=== PATIENT | female | born 1965 | race Caucasian/White ===

== ENCOUNTER 2023-07-18 11:01 | Emergency (ER) | payer MEDICARE, MEDICAID ==
[2023-07-18] MEDS ORDERED: Sodium Chloride 0.9% 10 ML Syringe FLUSH PRN (11:10)
[2023-07-18 11:23] LABS: BASOPHILS ABSOLUTE AUTO 0.01 10^3/uL (0.00-0.10); BASOPHILS PERCENT AUTO 0.1 % (0.0-1.0); EOSINOPHILS ABSOLUTE AUTO 0.12 10^3/uL (0.10-0.30); EOSINOPHILS PERCENT AUTO 0.9 % (1.0-3.0); HEMATOCRIT 45.2 % (37.0-47.0); HEMOGLOBIN 15.1 g/dL (12.0-16.0); IMMATURE GRAN ABSOLUTE AUTO 0.05 10^3/uL (0.00-0.50); IMMATURE GRAN PERCENT AUTO 0.4 % (0.0-5.0); LYMPHOCYTES ABSOLUTE AUTO 3.59 10^3/uL (1.00-4.00); LYMPHOCYTES PERCENT AUTO 27.8 % (20.0-40.0); MEAN CORPUSCULAR HEMOGLOBIN 31.9 pg (27.0-31.0); MEAN CORPUSCULAR HGB CONC 33.4 g/dL (32.0-36.0); MEAN CORPUSCULAR VOLUME 95.4 fL (82.0-92.0); MEAN PLATELET VOLUME 9.5 fL (7.4-10.4); MONOCYTES ABSOLUTE AUTO 0.73 10^3/uL (0.10-0.80); MONOCYTES PERCENT AUTO 5.6 % (2.0-8.0); NEUTROPHILS ABSOLUTE AUTO 8.43 10^3/uL (2.50-7.00); NEUTROPHILS PERCENT AUTO 65.2 % (50.0-70.0); PLATELET COUNT,PLT 284 10^3/uL (150-400); RED BLOOD CELL COUNT 4.74 10^6/uL (3.80-5.50); RED CELL DISTRIBUTION WIDTH 12.7 % (11.5-14.5); WHITE BLOOD CELL COUNT,WBC 12.93 10^3/uL (5.00-10.00)
[2023-07-18] MEDS: Sodium Chloride 0.9% 1,000 ML IV ONE (11:34)
[2023-07-18 11:45] LABS: ALBUMIN 3.51 g/dL (3.40-5.00); BILIRUBIN TOTAL 1.6 mg/dL (0.2-1.0); CALCIUM 9.5 mg/dL (8.7-10.3); CARBON DIOXIDE,CO2 35.6 mmol/L (21.0-32.0); CREATININE 0.96 mg/dL (0.51-1.17); EST CRCL DRUG DOSING (CG) 52.84 mL/min
[2023-07-18] MEDS: Albuterol/Ipratropium 3.0-0.5 MG/3 ML Neb Soln NEB ONE (11:57)
[2023-07-18 12:06] LABS: INFLUENZA A NAA NEGATIVE (NEGATIVE); INFLUENZA B NAA NEGATIVE (NEGATIVE); RESPIRATORY SYNCYTIAL VIR NAA NEGATIVE (NEGATIVE)
[2023-07-18 12:07] LABS: ANION GAP 8.7 mmol/L (5-15); POTASSIUM,K 3.3 mmol/L (3.5-5.1)
[2023-07-18 12:09] LABS: CORONAVIRUS COVID-19 NAA POSITIVE (NEGATIVE)
== END 2023-07-18 12:40 | disposition home or self-care (01) ==
LOC: KA.ED 11:01
DX: U07.1 COVID-19 (principal); R00.2 Palpitations; R94.5 Abnormal results of liver function studies; Z91.048 Other nonmedicinal substance allergy status; Z88.8 Allergy status to other drugs, medicaments and biological substances; Z87.19 Personal history of other diseases of the digestive system
CPT/HCPCS: 0241U; 36415; 71045; 80053; 84484; 85025; 93010; 96360; 99284; 99285-25; J7030; J7620-GY

== ENCOUNTER 2023-09-22 11:06 | Emergency (ER) | payer MEDICARE, OTHER ==
[2023-09-22 11:42] LABS: BASOPHILS ABSOLUTE AUTO 0.01 10^3/uL (0.00-0.10); BASOPHILS PERCENT AUTO 0.1 % (0.0-1.0); EOSINOPHILS ABSOLUTE AUTO 0.05 10^3/uL (0.10-0.30); EOSINOPHILS PERCENT AUTO 0.5 % (1.0-3.0); HEMATOCRIT 44.4 % (37.0-47.0); HEMOGLOBIN 14.7 g/dL (12.0-16.0); IMMATURE GRAN ABSOLUTE AUTO 0.02 10^3/uL (0.00-0.50); IMMATURE GRAN PERCENT AUTO 0.2 % (0.0-5.0); LYMPHOCYTES ABSOLUTE AUTO 1.88 10^3/uL (1.00-4.00); LYMPHOCYTES PERCENT AUTO 19.1 % (20.0-40.0); MEAN CORPUSCULAR HEMOGLOBIN 31.9 pg (27.0-31.0); MEAN CORPUSCULAR HGB CONC 33.1 g/dL (32.0-36.0); MEAN CORPUSCULAR VOLUME 96.3 fL (82.0-92.0); MEAN PLATELET VOLUME 9.2 fL (7.4-10.4); MONOCYTES ABSOLUTE AUTO 0.94 10^3/uL (0.10-0.80); MONOCYTES PERCENT AUTO 9.6 % (2.0-8.0); NEUTROPHILS ABSOLUTE AUTO 6.93 10^3/uL (2.50-7.00); NEUTROPHILS PERCENT AUTO 70.5 % (50.0-70.0); PLATELET COUNT,PLT 250 10^3/uL (150-400); RED BLOOD CELL COUNT 4.61 10^6/uL (3.80-5.50); RED CELL DISTRIBUTION WIDTH 13.2 % (11.5-14.5); WHITE BLOOD CELL COUNT,WBC 9.83 10^3/uL (5.00-10.00)
[2023-09-22 12:00] LABS: ALBUMIN 3.6 g/dL (3.40-5.00); BILIRUBIN TOTAL 1.1 mg/dL (0.2-1.0); CALCIUM 9.3 mg/dL (8.7-10.3); CARBON DIOXIDE,CO2 36.3 mmol/L (21.0-32.0); CREATININE 0.91 mg/dL (0.51-1.17); EST CRCL DRUG DOSING (CG) 55.74 mL/min; POTASSIUM,K 3.3 mmol/L (3.5-5.1); PROTEIN TOTAL,TP 7.3 g/dL (6.4-8.2)
[2023-09-22 12:22] LABS: INFLUENZA A NAA NEGATIVE (NEGATIVE); INFLUENZA B NAA NEGATIVE (NEGATIVE); RESPIRATORY SYNCYTIAL VIR NAA NEGATIVE (NEGATIVE)
[2023-09-22 12:24] LABS: CORONAVIRUS COVID-19 NAA POSITIVE (NEGATIVE)
[2023-09-22] MEDS: Sodium Chloride 0.9% 1,000 ML IV ONE (12:42)
[2023-09-22] MEDS: Albuterol/Ipratropium 3.0-0.5 MG/3 ML Neb Soln NEB ONE (12:43)
== END 2023-09-22 13:05 | disposition home or self-care (01) ==
LOC: KA.ED 11:06
DX: U07.1 COVID-19 (principal); E78.00 Pure hypercholesterolemia, unspecified; I10 Essential (primary) hypertension; J45.909 Unspecified asthma, uncomplicated; Z91.048 Other nonmedicinal substance allergy status; Z88.8 Allergy status to other drugs, medicaments and biological substances; Z79.899 Other long term (current) drug therapy; Z79.51 Long term (current) use of inhaled steroids
CPT/HCPCS: 0241U; 36415; 71046; 80053; 83605; 84484; 85025; 85379; 94640; 99285; J7620-GY

== ENCOUNTER 2023-09-24 11:53 | Inpatient (IN) | payer MEDICARE, OTHER ==
[2023-09-24] MEDS ORDERED: Sodium Chloride 0.9% 10 ML Syringe FLUSH PRN ×2 (12:01→15:49)
[2023-09-24 12:13] LABS: BASOPHILS ABSOLUTE AUTO 0.02 10^3/uL (0.00-0.10); BASOPHILS PERCENT AUTO 0.2 % (0.0-1.0); EOSINOPHILS ABSOLUTE AUTO 0.12 10^3/uL (0.10-0.30); EOSINOPHILS PERCENT AUTO 1.3 % (1.0-3.0); HEMATOCRIT 44.4 % (37.0-47.0); HEMOGLOBIN 14.9 g/dL (12.0-16.0); IMMATURE GRAN ABSOLUTE AUTO 0.01 10^3/uL (0.00-0.50); IMMATURE GRAN PERCENT AUTO 0.1 % (0.0-5.0); LYMPHOCYTES ABSOLUTE AUTO 3.09 10^3/uL (1.00-4.00); LYMPHOCYTES PERCENT AUTO 34.5 % (20.0-40.0); MEAN CORPUSCULAR HEMOGLOBIN 32.2 pg (27.0-31.0); MEAN CORPUSCULAR HGB CONC 33.6 g/dL (32.0-36.0); MEAN CORPUSCULAR VOLUME 95.9 fL (82.0-92.0); MEAN PLATELET VOLUME 9.9 fL (7.4-10.4); MONOCYTES ABSOLUTE AUTO 0.79 10^3/uL (0.10-0.80); MONOCYTES PERCENT AUTO 8.8 % (2.0-8.0); NEUTROPHILS ABSOLUTE AUTO 4.92 10^3/uL (2.50-7.00); NEUTROPHILS PERCENT AUTO 55.1 % (50.0-70.0); PLATELET COUNT,PLT 210 10^3/uL (150-400); RED BLOOD CELL COUNT 4.63 10^6/uL (3.80-5.50); WHITE BLOOD CELL COUNT,WBC 8.95 10^3/uL (5.00-10.00)
[2023-09-24] MEDS: Sodium Chloride 0.9% 1,000 ML IV ONE (12:40)
[2023-09-24 12:50] LABS: ALANINE AMINOTRANSFERASE,ALT 30 U/L (14-63); ALBUMIN 3.45 g/dL (3.40-5.00); ALKALINE PHOSPHATASE 99 U/L (46-116); ANION GAP 9.6 mmol/L (5-15); ASPARTATE AMNIOTRANSFERASE,AST 25 U/L (15-37); BLOOD UREA NITROGEN,BUN 12 mg/dL (7-18); CALCIUM 9.2 mg/dL (8.7-10.3); CHLORIDE,CL 94 mmol/L (98-107); EST CRCL DRUG DOSING (CG) 56.36 mL/min; GLUCOSE RANDOM 103 mg/dL (70-140); POTASSIUM,K 3.6 mmol/L (3.5-5.1); PROTEIN TOTAL,TP 7.1 g/dL (6.4-8.2); SODIUM,NA 138 mmol/L (136-145)
[2023-09-24 12:51] LABS: ESTIMATED GFR 74 mL/min (>=60)
[2023-09-24 12:52] LABS: LACTIC ACID 1.6 mmol/L (0.4-2.0)
[2023-09-24 12:56] LABS: B-TYPE NATRIURETIC PEPTIDE,BNP < 5 pg/mL (0-100)
[2023-09-24] MEDS: Albuterol/Ipratropium 3.0-0.5 MG/3 ML Neb Soln NEB ONE (13:48)
[2023-09-24 14:39] LABS: APPEARANCE,URINE CLEAR (CLEAR); BILIRUBIN,URINE NEGATIVE (NEGATIVE); COLOR,URINE YELLOW (YELLOW); GLUCOSE,URINE NEGATIVE (NEGATIVE); KETONES,URINE NEGATIVE (NEGATIVE); LEUKOCYTE ESTERASE,URINE NEGATIVE (NEGATIVE); NITRITE,URINE NEGATIVE (NEGATIVE); OCCULT BLOOD,URINE TRACE-INTACT (NEGATIVE); PH,URINE 7.5 (5.0-9.0); PROTEIN,URINE NEGATIVE (NEGATIVE); UROBILINOGEN,URINE 0.2 E.U./dL (0.2-1.0)
[2023-09-24 14:57] LABS: BACTERIA,URINE OCCASIONAL /HPF (NONE TO FEW); EPITHELIAL CELLS,URINE FEW /LPF; RBC,URINE 0-5 /HPF (0-5); WBC,URINE 0-5 /HPF (0-5)
[2023-09-24] MEDS ORDERED: Ibuprofen 200 MG Tab PO PRN (15:49)
[2023-09-24] MEDS ORDERED: Ondansetron 4 MG/2 ML SDV IV PRN (15:49)
[2023-09-24] MEDS ORDERED: Polyethylene Glycol 3350 Powder 17 GM Packet PO PRN (15:49)
[2023-09-24] MEDS ORDERED: Melatonin 3 MG Tab PO PRN (15:49)
[2023-09-24] MEDS ORDERED: Albuterol/Ipratropium 3.0-0.5 MG/3 ML Neb Soln INH PRN (15:56)
[2023-09-24] MEDS ORDERED: Diclofenac Sodium 75 MG Tab.EC PO PRN (15:56)
[2023-09-24] MEDS ORDERED: hydrOXYzine HCl 25 MG Tab PO PRN (15:56)
[2023-09-24] MEDS: Cetirizine 10 MG Tab PO SCH (16:41)
[2023-09-24] MEDS: guaiFENesin 600 MG Tab.ER PO SCH (16:41)
[2023-09-24] MEDS: Albuterol 0.083% 2.5 MG/3 ML Neb Soln INH SCH (16:41)
[2023-09-24] MEDS: Formoterol/Mometasone 200-5 MCG 8.8 GM Inhaler IH SCH (16:41)
[2023-09-24] MEDS: Dexamethasone 10 MG/ML SDV IVPUSH SCH (16:41)
[2023-09-24] MEDS: rOPINIRole 1 MG Tab PO SCH (21:00)
[2023-09-24] MEDS: Atropine/Diphenoxylate 0.025-2.5 MG Tab PO PRN (21:00)
[2023-09-24] MEDS: Montelukast 10 MG Tab PO SCH (21:01)
[2023-09-24] MEDS: Gabapentin 300 MG Cap PO SCH (21:01)
[2023-09-24] MEDS: busPIRone 10 MG Tab PO SCH (21:01)
[2023-09-24] MEDS: ClonazePAM 0.5 MG Tab PO SCH (21:44)
[2023-09-25] MEDS: DULoxetine 30 MG Cap PO SCH (09:06)
[2023-09-25] MEDS: busPIRone 10 MG Tab PO SCH (09:07)
[2023-09-25] MEDS: Spironolactone 25 MG Tab PO SCH (09:07)
[2023-09-25] MEDS: Potassium Chloride 20 MEQ Tab.ER PO SCH (09:07)
[2023-09-25] MEDS: Citalopram 20 MG Tab PO SCH (09:07)
[2023-09-25] MEDS: Lactobacillus Rhamnosus GG (Probiotic) Cap PO SCH (09:07)
[2023-09-25] MEDS: Hydrochlorothiazide 25 MG Tab PO SCH (09:07)
[2023-09-25] MEDS: Magnesium Oxide 500 MG Tab PO SCH (09:07)
[2023-09-25] MEDS: Acetaminophen 325 MG Tab PO PRN (10:48)
[2023-09-26 07:35] LABS: BASOPHILS ABSOLUTE AUTO 0.02 10^3/uL (0.00-0.10); BASOPHILS PERCENT AUTO 0.1 % (0.0-1.0); EOSINOPHILS ABSOLUTE AUTO 0.01 10^3/uL (0.10-0.30); EOSINOPHILS PERCENT AUTO 0.1 % (1.0-3.0); HEMATOCRIT 38.6 % (37.0-47.0); IMMATURE GRAN ABSOLUTE AUTO 0.07 10^3/uL (0.00-0.50); IMMATURE GRAN PERCENT AUTO 0.5 % (0.0-5.0); LYMPHOCYTES ABSOLUTE AUTO 3.55 10^3/uL (1.00-4.00); LYMPHOCYTES PERCENT AUTO 24.1 % (20.0-40.0); MEAN CORPUSCULAR HEMOGLOBIN 32.5 pg (27.0-31.0); MEAN CORPUSCULAR HGB CONC 33.7 g/dL (32.0-36.0); MEAN CORPUSCULAR VOLUME 96.5 fL (82.0-92.0); MEAN PLATELET VOLUME 9.1 fL (7.4-10.4); MONOCYTES ABSOLUTE AUTO 0.83 10^3/uL (0.10-0.80); MONOCYTES PERCENT AUTO 5.6 % (2.0-8.0); NEUTROPHILS ABSOLUTE AUTO 10.22 10^3/uL (2.50-7.00); NEUTROPHILS PERCENT AUTO 69.6 % (50.0-70.0); PLATELET COUNT,PLT 309 10^3/uL (150-400)
[2023-09-26 07:50] LABS: CALCIUM 8.7 mg/dL (8.7-10.3); CARBON DIOXIDE,CO2 35.1 mmol/L (21.0-32.0); CREATININE 0.88 mg/dL (0.51-1.17); EST CRCL DRUG DOSING (CG) 57.62 mL/min; POTASSIUM,K 3.1 mmol/L (3.5-5.1)
[2023-09-26] MEDS: Dexamethasone 10 MG/ML SDV IVPUSH SCH (09:02)
[2023-09-26] MEDS: Potassium Chloride 20 MEQ Tab.ER PO ONE (11:24)
[2023-09-26] MEDS: predniSONE 20 MG Tab PO ONE (13:18)
== END 2023-09-26 13:35 | disposition home or self-care (01) | DRG 202 ==
LOC: KA.ED 11:53 → KA.MS 14:22
PROVIDERS: ADMIT Family Medicine; ATTEND Family Medicine
DX: J45.901 Unspecified asthma with (acute) exacerbation (principal); J98.8 Other specified respiratory disorders; B97.89 Other viral agents as the cause of diseases classified elsewhere; R06.02 Shortness of breath; F17.200 Nicotine dependence, unspecified, uncomplicated; U07.1 COVID-19; Z66 Do not resuscitate; R60.0 Localized edema; E78.00 Pure hypercholesterolemia, unspecified; I10 Essential (primary) hypertension; K52.9 Noninfective gastroenteritis and colitis, unspecified; G25.81 Restless legs syndrome; F41.9 Anxiety disorder, unspecified; F32.A Depression, unspecified; E66.9 Obesity, unspecified; F17.210 Nicotine dependence, cigarettes, uncomplicated; H54.7 Unspecified visual loss; Z88.8 Allergy status to other drugs, medicaments and biological substances; Z79.51 Long term (current) use of inhaled steroids; Z91.048 Other nonmedicinal substance allergy status; Z79.899 Other long term (current) drug therapy; Z68.31 Body mass index [BMI] 31.0-31.9, adult; Z87.440 Personal history of urinary (tract) infections
CPT/HCPCS: 36415; 71045; 80053; 83605; 83880; 84484; 85025; 85379; 87040 ×2; 94640; 96360; 99285; J7030; 80048; 81001; 83735; 99223-GT; 99233-GT; 99239-GT; 99284; A9270-GY; J1100; J7512; J7613-GY; J7620-GY; Q3014